=== PATIENT | female | born 1970 | race Caucasian/White ===

== ENCOUNTER 2018-10-03 13:49 | Outpatient (CLI) | payer BC ==
--- NOTE | 2018-10-03 16:35 | MRI ---
MRI OF THE LUMBAR SPINE WITHOUT CONTRAST: 10/03/18 INDICATION: Chronic mid low back pain progressively worsening. COMPARISON: None. FINDINGS: There is a small area of fatty marrow versus a hemangioma within the superior aspect of L5. Conus is seen to terminate at approximately L1. There is a T2 hyperintense 1.6 cm cystic lesion within the ronal pected region of the right adnexa that is incompletely included within the field of view. At L5-S1, there is no appreciable central canal or neural foraminal narrowing. At L4-5, there is mild facet joint degenerative change and mild broad based bulge without appreciable central canal or neural foraminal narrowing. At L3-4, there is no appreciable central canal or neural foraminal narrowing. At L2-3, there is a broad based bulge with a superimposed central protrusion causing mild ventral eff acement of the thecal sac. There is no appreciable neural foraminal narrowing. At L1-2, there is no appreciable central canal or neural foraminal narrowing. At T12-L1, there is a small right paracentral protrusion with no appreciable central canal or neural foraminal narrowing. IMPRESSION: 1. Multilevel spondylosis of the lumbar spine. No neural foraminal narrowing demonstrated. 2. T2 hyperintense lesion within the expected region of the right adnexa may reflect a small fol licular cyst. Followup pelvic ultrasound to further characterize this is recommended. POS: [facility]
--- NOTE | 2018-10-03 16:45 | MRI ---
MRI CERVICAL SPINE WITHOUT CONTRAST: 10/03/18 COMPARISON: 08/31/16. HISTORY: Chronic cervical spine, worsening. TECHNIQUE: Cervical spine MRI is performed without intravenous gadolinium administration. Multisequential, multi planar imaging is performed. FINDINGS: Straightening of the normal cervical lordosis. Vertebral body height is maintained. No fracture. No s ignificant STIR hyperintensity to suggest vertebral body edema or ligamentous injury. The visualized brain parenchyma, cervicomedullary junction, cervical cord, and the upper thoracic cor d have a normal size and signal intensity. C2-C3: No significant disc osteophyte complex. No significant central canal stenosis. Foramina are pa tent. C3-C4: No significant disc osteophyte complex. No significant central canal stenosis. Foramina are pa tent. C4-C5: No significant disc osteophyte complex. No significant central canal stenosis. Foramina are pa tent. C5-C6: There is a midline disc bulge that abuts the thecal sac. Ventral subarachnoid space is effaced . No significant mass effect upon the cervical cord. No significant central canal stenosis. Neural fo ramina are patent. C6-C7: There is a central/right paracentral disc protrusion that deforms the thecal sac. There is mil d deformity of the cervical cord. No T2 hyperintensity in the cord. Bilaterally, neural foramina are patent. C7-T1: No significant central canal stenosis. Foramina are patent. IMPRESSION: 1. No significant central canal stenosis or foraminal narrowing. 2. Degenerative disc disease at C5-C6 and C6-C7 as above. POS: [facility]
--- NOTE | 2018-10-03 17:11 | RAD ---
LUMBAR SPINE: 09/23/18 Four views. lateral views obtained with neutral, flexion and extension position. INDICATION: Low back pain. Lumbar vertebra maintain normal height and alignment. Disc spaces are maintained. Mild facet hypertro phy at L4-5 and L5-S1. No evidence of spondylolisthesis. No compression deformity. Minimal degenerati ve spurring. IMPRESSION: Mild facet hypertrophy. Alignment is maintained with flexion and extension. POS: [facility]
== END 2018-10-03 13:50 | disposition home or self-care (01) ==
LOC: BICMRI 13:49
PROVIDERS: ATTEND Surgery
DX: M50.122 Cervical disc disorder at C5-C6 level with radiculopathy (principal); M47.26 Other spondylosis with radiculopathy, lumbar region; N85.9 Noninflammatory disorder of uterus, unspecified
CPT/HCPCS: 72110; 72141; 72148

== ENCOUNTER 2023-07-23 08:37 | Outpatient (CLI) | payer BC | END 2023-07-23 08:38 | disposition home or self-care (01) | LOC: RAD 08:37 | PROVIDERS: ATTEND Chiropractor | DX: M79.672 Pain in left foot (principal) ==